=== PATIENT | male | born 1970 | race Caucasian/White ===

== ENCOUNTER 2016-07-28 08:30 | Emergency (ER) | payer OTHER ==
[~2016-07-28] VITALS: Ht 188 cm; Wt 119.0 kg
[~2016-07-28 08:30] MED LIST: ANTABUSE250 MG PO; FLOMAX0.4 MG PO; LIBRIUM25 MG PO; MECLIZINE HCL25 MG PO; NO HOME MEDS; NORCO 5/3251 TABLET PO; ZOFRAN8 MG PO
[2016-07-28] MEDS ORDERED: TRAZODONE HCL50 MG PO (09:31)
[2016-07-28] MEDS ORDERED: VALIUM5 MG PO (09:31)
[2016-07-28 09:40] VITALS: BP 141/93
[2016-07-28] MEDS ORDERED: LIBRIUM25 MG PO (12:26)
== END 2016-07-28 09:42 | disposition home or self-care (01) ==
LOC: EME 08:30
DX: F10.239 Alcohol dependence with withdrawal, unspecified (principal); I10 Essential (primary) hypertension; F17.200 Nicotine dependence, unspecified, uncomplicated
CPT/HCPCS: 99281; 99284

== ENCOUNTER 2016-07-28 10:19 | Emergency (ER) | payer OTHER ==
[~2016-07-28] VITALS: Ht 188 cm; Wt 118.0 kg
[~2016-07-28 10:19] MED LIST changes: +TRAZODONE HCL50 MG PO; +VALIUM5 MG PO
[2016-07-28 11:21] LABS: HEMATOCRIT 45.4 % (38.0-50.0); MCH 28.9 PG (29.0-34.0); MCHC 34.1 G/DL (30.0-36.0); MCV 84.7 FL (86-99); PLATELET COUNT 263 K/uL (156-360); RBC DIS.WIDTH-CV 13.6 % (11.8-14.6); RED BLOOD COUNT 5.36 M/uL (4.00-5.50); WHITE BLOOD COUNT 11.8 K/uL (4.1-10.2)
[2016-07-28 11:30] LABS: CHLORIDE 99 mEq/L (99-109); POTASSIUM 4.3 mEq/L (3.7-5.4); SODIUM 137 mEq/L (136-147)
[2016-07-28 11:32] LABS: GLUCOSE 108 mg/dL (70-99)
[2016-07-28 11:33] LABS: ANION GAP 20 MEQ/L (2-14)
[2016-07-28 11:36] LABS: GFR ESTIMATE (CALCULATED) > 59 mL/min/
[2016-07-28 11:37] LABS: UREA NITROGEN (BUN) 13 mg/dL (9-23)
[2016-07-28 11:42] LABS: TROP-I INTERPRETATION NEGATIVE; TROPONIN-I < 0.01 ng/mL (0.0-0.30)
[2016-07-28] MEDS ORDERED: LIBRIUM25 MG PO (12:26)
[2016-07-28 12:36] VITALS: BP 162/93
== END 2016-07-28 12:38 | disposition left against medical advice (07) ==
LOC: EME 10:19 → EXP 10:19
PROVIDERS: Emergency Medicine
DX: R55 Syncope and collapse (principal); I10 Essential (primary) hypertension; F17.200 Nicotine dependence, unspecified, uncomplicated; F10.20 Alcohol dependence, uncomplicated; R07.9 Chest pain, unspecified; R06.02 Shortness of breath
CPT/HCPCS: 71020; 80048; 84484; 85027; 93005; 99281; 99283

== ENCOUNTER 2017-04-20 07:49 | Emergency (ER) | payer OTHER ==
[~2017-04-20] VITALS: Ht 188 cm; Wt 122.7 kg
[2017-04-20 08:26] LABS: BASOPHIL (%) 0.3 % (0-1); EOSINOPHIL (%) 0.5 % (0-5); EOSINOPHIL COUNT 0.1 K/uL (0-0.3); HEMATOCRIT 42.9 % (38.0-50.0); HEMOGLOBIN 14.5 G/DL (12.5-16.6); IMMATURE GRANULOCYTE (%) 0.6 % (0.0-0.7); LYMPHOCYTE (%) 16.2 % (15-42); LYMPHOCYTE COUNT 1.8 K/uL (1.0-2.8); MCH 28.4 PG (29.0-34.0); MCHC 33.8 G/DL (30.0-36.0); MCV 84.1 FL (86-99); MONOCYTE (%) 6.1 % (3-12); MONOCYTE COUNT 0.7 K/uL (0-0.8); NEUTROPHIL (%) 76.3 % (45-76); NEUTROPHIL COUNT 8.5 K/uL (1.8-6.4); PLATELET COUNT 304 K/uL (156-360); RBC DIS.WIDTH-CV 12.9 % (11.8-14.6); RBC DIS.WIDTH-SD 39.1 % (39-53); WHITE BLOOD COUNT 11.1 K/uL (4.1-10.2)
[2017-04-20 08:33] LABS: CHLORIDE 97 mEq/L (99-109); SODIUM 133 mEq/L (136-147)
[2017-04-20 08:34] LABS: GLUCOSE 85 mg/dL (70-99)
[2017-04-20 08:37] LABS: SERUM ETHYL ALCOHOL 108 mg/dL
[2017-04-20 08:38] LABS: CREATININE 0.8 mg/dL (0.6-1.3); GFR ESTIMATE (CALCULATED) > 59 mL/min/ (58.99-99999)
[2017-04-20 08:39] LABS: UREA NITROGEN (BUN) 13 mg/dL (9-23)
[2017-04-20 09:25] LABS: APPEARANCE CLEAR ((CLEAR)); BILIRUBIN NEGATIVE; BLOOD SMALL; COLOR YELLOW ((YELLOW)); GLUCOSE (STRIP) NEGATIVE; KETONES 80; LEUKOCYTES NEGATIVE; NITRITE NEGATIVE; PROTEIN (STRIP) 30; SPECIFIC GRAVITY 1.018 (1.000-1.030); UROBILINOGEN 0.2 MG/DL (0.2-1.0)
[2017-04-20 09:32] LABS: BACTERIA RARE /HPF; EPITHELIAL CELLS NONE SEEN /HPF; MUCUS TRACE /LPF; RED BLOOD CELLS 0-5 /HPF (0-5); WHITE BLOOD CELLS 0-5 /HPF (0-5)
[2017-04-20 09:45] LABS: AMPHETAMINE NEGATIVE (500 ng/mL); BARBITURATES NEGATIVE (200 ng/mL); BENZODIAZEPINES NEGATIVE (150 ng/mL); BUPRENORPHINE NEGATIVE (10 ng/mL); COCAINE NEGATIVE (150 ng/mL); METHADONE NEGATIVE (200 ng/mL); METHAMPHETAMINE NEGATIVE (500 ng/mL); OPIATES (MORPHINE) NEGATIVE (100 ng/mL); OXYCODONE NEGATIVE (100 ng/mL); PHENCYCLIDINE NEGATIVE (25 ng/mL); PROPOXYPHENE NEGATIVE (300 ng/mL); THC CANNABINOIDS NEGATIVE (50 ng/mL); TRICYCLIC ANTIDEPRESSANTS NEGATIVE (300 ng/mL)
[2017-04-20] MEDS ORDERED: B-1100 MG PO (12:54)
[2017-04-20] MEDS ORDERED: LIBRIUM25 MG PO (12:54)
[2017-04-20] MEDS ORDERED: ZANTAC150 MG PO (12:56)
[2017-04-20] MEDS ORDERED: ZOFRAN4 MG PO (12:57)
[2017-04-20 13:01] VITALS: BP 156/89
== END 2017-04-20 13:02 | disposition home or self-care (01) ==
LOC: EME 07:49
PROVIDERS: Emergency Medicine
DX: F10.239 Alcohol dependence with withdrawal, unspecified (principal); E86.0 Dehydration; I10 Essential (primary) hypertension; Y90.5 Blood alcohol level of 100-119 mg/100 ml; Z87.891 Personal history of nicotine dependence; Z87.19 Personal history of other diseases of the digestive system; Z88.5 Allergy status to narcotic agent
CPT/HCPCS: 80048; 81003; 85025; 99281; 99284; G0480; J2060; J2405; J3411; J3475

== ENCOUNTER 2017-10-17 22:00 | Emergency (ER) | payer OTHER ==
[~2017-10-17] VITALS: Ht 188 cm; Wt 124.5 kg
[~2017-10-17 22:00] MED LIST changes: +B-1100 MG PO; +ZANTAC150 MG PO; +ZOFRAN4 MG PO
[2017-10-17 22:43] LABS: HEMATOCRIT 43.8 % (38.0-50.0); HEMOGLOBIN 15.3 G/DL (12.5-16.6); MCH 28.9 PG (29.0-34.0); MCHC 34.9 G/DL (30.0-36.0); MCV 82.6 FL (86-99); PLATELET COUNT 286 K/uL (156-360); RBC DIS.WIDTH-CV 13.2 % (11.8-14.6); RBC DIS.WIDTH-SD 39.4 % (39-53); WHITE BLOOD COUNT 9.1 K/uL (4.1-10.2)
[2017-10-17 22:59] LABS: CHLORIDE 105 mEq/L (99-109); GLUCOSE 110 mg/dL (70-99); POTASSIUM 4.2 mEq/L (3.7-5.4); SODIUM 144 mEq/L (136-147)
[2017-10-17 23:02] LABS: SERUM ETHYL ALCOHOL 244 mg/dL
[2017-10-17 23:03] LABS: CREATININE 1.1 mg/dL (0.6-1.3); GFR ESTIMATE (CALCULATED) > 59 mL/min/ (58.99-99999)
[2017-10-17 23:04] LABS: UREA NITROGEN (BUN) 10 mg/dL (9-23)
[2017-10-17 23:06] LABS: TROP-I INTERPRETATION NEGATIVE; TROPONIN-I < 0.01 ng/mL (0.0-0.30)
[2017-10-17 23:12] LABS: LIPASE 27 U/L (1.0-51.0)
[2017-10-18] MEDS ORDERED: B-1100 MG PO (00:05)
[2017-10-18] MEDS ORDERED: LIBRIUM25 MG PO (00:05)
[2017-10-18 00:08] LABS: ALBUMIN 4.6 g/dL (3.2-4.8)
[2017-10-18 00:10] LABS: TOTAL PROTEIN 7.8 g/dL (6.4-8.3)
[2017-10-18 00:12] LABS: TOTAL BILIRUBIN 0.7 mg/dL (0.0-1.0)
[2017-10-18 00:13] LABS: ALKALINE PHOSPHATASE 69 IU/L (3-129)
[2017-10-18 00:16] LABS: ALT (GPT) 32 IU/L (3-49); AST (GOT) 32 IU/L (2-34); DIRECT BILIRUBIN 0.2 mg/dL (0.0-0.3)
[2017-10-18 00:26] LABS: TROP-I INTERPRETATION NEGATIVE; TROPONIN-I < 0.01 ng/mL (0.0-0.30)
[2017-10-18 00:49] VITALS: BP 134/92
== END 2017-10-18 00:50 | disposition home or self-care (01) ==
LOC: EME 22:00
PROVIDERS: Emergency Medicine
DX: R07.89 Other chest pain (principal); F10.239 Alcohol dependence with withdrawal, unspecified; K42.9 Umbilical hernia without obstruction or gangrene; Z73.3 Stress, not elsewhere classified; Z87.891 Personal history of nicotine dependence; Y90.8 Blood alcohol level of 240 mg/100 ml or more
CPT/HCPCS: 71046; 80048; 80076; 83690; 84484; 85027; 93005; 99281; 99285; G0480; J7030; S0028

== ENCOUNTER 2017-11-14 11:33 | Inpatient (IN) | payer OTHER ==
[~2017-11-14] VITALS: Ht 188 cm; Wt 126.8 kg
[2017-11-14 12:50] LABS: HEMATOCRIT 41.7 % (38.0-50.0); MCH 28.8 PG (29.0-34.0); MCHC 33.6 G/DL (30.0-36.0); MCV 85.8 FL (86-99); PLATELET COUNT 262 K/uL (156-360); RBC DIS.WIDTH-CV 12.9 % (11.8-14.6); RBC DIS.WIDTH-SD 39.9 % (39-53); RED BLOOD COUNT 4.86 M/uL (4.00-5.50); WHITE BLOOD COUNT 10.4 K/uL (4.1-10.2)
[2017-11-14 13:05] LABS: CHLORIDE 107 mEq/L (99-109); POTASSIUM 4.8 mEq/L (3.7-5.4); SODIUM 141 mEq/L (136-147)
[2017-11-14 13:06] LABS: GLUCOSE 98 mg/dL (70-99)
[2017-11-14 13:10] LABS: GFR ESTIMATE (CALCULATED) > 59 mL/min/ (58.99-99999)
[2017-11-14 13:11] LABS: UREA NITROGEN (BUN) 12 mg/dL (9-23)
[2017-11-14] MEDS ORDERED: ZANTAC150 MG PO (14:47)
[2017-11-14] MEDS ORDERED: OMEPRAZOLE20 M2 PO (14:47)
[2017-11-14] MEDS ORDERED: ADVIL200 MG PO (14:48)
[2017-11-14] MEDS ORDERED: COLACE100 MG PO (18:33)
[2017-11-14] MEDS ORDERED: DILAUDID4 MG PO (18:33)
[2017-11-14 20:15] VITALS: BP 149/73
[2017-11-14 23:51] VITALS: BP 146/89
[2017-11-15 07:46] VITALS: BP 138/87
== END 2017-11-15 15:55 | disposition home or self-care (01) | DRG 337 ==
LOC: EME 11:33 → 5EAST 14:48 → EDOF 14:48 → ENRESERV 15:00 → 5EAST 19:13
PROVIDERS: Emergency Medicine
DX: K42.0 Umbilical hernia with obstruction, without gangrene (principal); K21.9 Gastro-esophageal reflux disease without esophagitis; K66.0 Peritoneal adhesions (postprocedural) (postinfection); F17.220 Nicotine dependence, chewing tobacco, uncomplicated; E66.9 Obesity, unspecified; Z68.35 Body mass index [BMI] 35.0-35.9, adult
CPT/HCPCS: 80048; 85027; 88302; 93005; 99281; 99285; C1781; J0330; J0690; J1100; J1170; J1885; J2250; J2270; J2405; J3010; S0028